=== PATIENT | female | born 1980 | race Caucasian/White ===

== ENCOUNTER 2016-07-22 15:03 | Emergency (ER) | payer OTHER ==
--- NOTE | 2016-07-22 15:04 | UCPHY ---
H & P Patient Type: New HPI/ROS: HPI CHIEF COMPLAINT: Lightheadedness, palpitations, feeling as I was going to pass out HISTORY OF PRESENT ILLNESS: This patient very pleasant 36-year-old female significant past medical history fibroidectomy on July 04 this was complicated by pneumonia and pulmonary embolisms, she is currently on Coumadin. 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 She felt like she is going to pass out she did not have chest pain she did not have shortness of breath. She tells me that she has been compliant with her Coumadin. She tells me she had multiple PEs. She had to lay down she did not feel nauseous. She did take her pulse her pulse oxygen was 100% but her pulse was 135. Past Medical History: Pulmonary embolus, pneumonia, on Coumadin Past Surgical History: Recent fibroidectomy Social History: Denies daily use of drugs alcohol tobacco products works as a dental anesthetic assistant Family History: Noncontributory ROS REVIEW OF SYSTEMS: A comprehensive 10 point review of systems is otherwise negative aside from elements mentioned in the history of present illness. Exam Constitutional appears well nontoxic, triage nursing summary reviewed, vital signs reviewed, awake/alert. Eyes normal conjunctivae and sclera, EOMI, PERRLA. HENT normal inspection, atraumatic, moist mucus membranes, no epistaxis, neck supple/ no meningismus, no raccoon eyes. Respiratory clear to auscultation bilaterally, normal breath sounds, no respiratory distress, no wheezing. Cardiovascular rate normal, regular rhythm, no murmur, no edema, distal pulses normal. Gastrointestinal soft, non-tender, no rebound, no guarding, normal bowel sounds, no distension, no pulsatile mass. Genitourinary no CVA tenderness. Musculoskeletal no midline vertebral tenderness, full range of motion, no calf swelling, no tenderness of extremities, no meningismus, good pulses, neurovascularly intact. Skin pink, warm, & dry, no rash, skin atraumatic. Neurologic awake, alert and oriented x 3, AAOx3, moves all 4 extremities equally, motor intact, sensory intact, CN II-XII intact, normal cerebellar, normal vision, normal speech. Psychiatric normal mood/affect. Heme/Lymph/Immune no lymphadenopathy. Differential Diagnosis: Includes but is not limited to in a particular order, cardiac arrhythmia, palpitations, dehydration, electrolyte abnormality, anemia, pulmonary embolism, acute MO Medical Decision Making: Plan for this patient this patient had an IV established obtain blood work, she will need D-dimer, EKG, chest x-ray should be hydrated IV fluids. Re-evaluation: EKG interpretation by me on record in [employer] system. Impression time of EKG 1635, this is sinus rhythm rate of 78 no acute ischemic changes specifically no ST elevation, ST depression, T-wave abnormalities, prolonged intervals. CT scan of the angiogram chest with IV contrast. The results of the study are shows a very small subsegmental Right lower lobe pulmonary embolism. The study was read by Dr. Wilcox I viewed the images myself on the PACS system. 1826: re-evaluation at this time this patient is resting comfortably no acute distress. Feels comfortable. No chest pain no shortness of breath. She has been maintained on a cardiac cath lab technologist the entire time she has been here without any significant tachycardia or arrhythmia. Patient's current vitals pulse ox 97 % on room air, heart rate 83, resting comfortably. I did go over her CT scan results with shows a very small age-indeterminate right lower lobe pulmonary embolism. This is unlikely to cause her symptoms of tachycardia to the 130s and feeling like she was going to pass out she had no chest pain or shortness of breath. No pleuritic pain she is on Coumadin I explained to her that she needs to up her Coumadin level for the next 2 days follow closely with primary care doctor get her INR recheck, also follow up for palpitations. She understands she is syncopal episode chest pain shortness of breath fast heart rate she needs to immediately return to the urgent care or emergency room. 1900: examination at this time this patient is comfortable going home. She feels fine. No chest pain or short of breath. No tachycardia she ambulated well without difficulty p.o. challenge well. Comfortable plan going home records given to her to follow up with primary care doctor INR slightly low she understands increase her Coumadin for double dose of the next 2 days. Then resume normal dose. Given INR recheck in a few days with the primary care doctor she understands. Source: Patient - Family History Significant Family History: No pertinent family hx Constitutional: Initial Vital Signs Temperature (C) 36.6 C 07/22/16 15:16 Heart Rate 78 07/22/16 15:16 Respiratory Rate 18 07/22/16 15:16 Blood Pressure 124/66 H 07/22/16 15:16 O2 Sat (%) 96 07/22/16 15:16 O2 Delivery Mode Room Air Allergies/Adverse Reactions: acetaminophen [From Percocet] Allergy (Verified 07/22/16 15:16) oxycodone HCl [From Percocet] Allergy (Verified 07/22/16 15:16) Home Medications: Medication Instructions Recorded Coumadin 07/22/16 Medical Decision Making - Data Points Laboratory Results: Laboratory Results 07/22/16 15:51 07/22/16 15:51 07/22/16 07/22/16 07/22/16 15:51 15:51 15:51 WBC 7.34 10^3/uL 10^3/uL (3.80-9.50) RBC 4.01 10^6/uL L 10^6/uL (4.18-5.33) Hgb 11.0 g/dL L g/dL (12.6-16.3) Hct 33.9 % L % (38.0-47.0) MCV 84.5 fL fL (81.5-99.8) MCH 27.4 pg L pg (27.9-34.1) MCHC 32.4 g/dL g/dL (32.4-36.7) RDW 13.2 % % (11.5-15.2) Plt Count 399 10^3/uL 10^3/uL (150-400) MPV 10.4 fL fL (8.7-11.7) Neut % (Auto) 69.9 % % (39.3-74.2) Lymph % (Auto) 20.7 % % (15.0-45.0) [place] % (Auto) 6.8 % % (4.5-13.0) Eos % (Auto) 1.8 % % (0.6-7.6) Baso % (Auto) 0.4 % % (0.3-1.7) Nucleat RBC Rel Count 0.0 % % (0.0-0.2) Absolute Neuts (auto) 5.13 10^3/uL 10^3/uL (1.70-6.50) Absolute Lymphs (auto) 1.52 10^3/uL 10^3/uL (1.00-3.00) Absolute Monos (auto) 0.50 10^3/uL 10^3/uL (0.30-0.80) Absolute Eos (auto) 0.13 10^3/uL 10^3/uL (0.03-0.40) Absolute Basos (auto) 0.03 10^3/uL 10^3/uL (0.02-0.10) Absolute Nucleated RBC 0.00 10^3/uL 10^3/uL (0-0.01) Immature Gran % 0.4 % % (0.0-1.1) Immature Gran # 0.03 10^3/uL 10^3/uL (0.00-0.10) PT 17.7 SEC H SEC (12.0-15.0) INR 1.49 H (0.83-1.16) APTT 34.5 SEC SEC (23.0-38.0) D-Dimer 0.62 ug/mLFEU H ug/mLFEU (0.00-0.50) Sodium 140 mEq/L mEq/L (134-144) Potassium 4.4 mEq/L mEq/L (3.5-5.2) Chloride 103 mEq/L mEq/L (97-110) Carbon Dioxide 26 mEq/l mEq/l (22-31) Anion Gap 11 mEq/L mEq/L (8-16) BUN 10 mg/dL mg/dL (7-23) Creatinine 0.5 mg/dL L mg/dL (0.6-1.0) Estimated GFR > 60 Glucose 110 mg/dL H mg/dL (70-100) Calcium 9.5 mg/dL mg/dL (8.5-10.4) Magnesium 1.9 mg/dL mg/dL (1.6-2.3) Total Bilirubin 0.4 mg/dL mg/dL (0.1-1.4) Conjugated Bilirubin 0.2 mg/dL mg/dL (0.0-0.5) Unconjugated Bilirubin 0.2 mg/dL mg/dL (0.0-1.1) AST 27 IU/L IU/L (14-46) ALT 54 IU/L H IU/L (9-52) Alkaline Phosphatase 79 IU/L IU/L (38-126) Troponin I < 0.012 ng/mL ng/mL (0-0.034) NT-Pro-B Natriuret Pep 130 pg/mL H pg/mL (0-125) Total Protein 7.7 g/dL g/dL (6.3-8.2) Albumin 4.0 g/dL g/dL (3.5-5.0) Lipase 85.0 IU/L IU/L (23-300) Medications Given: Discontinued Medications Sodium Chloride (Ns) 1,000 mls @ 0 mls/hr IV ONCE ONE PRN Reason: Wide Open Stop: 07/22/16 15:31 Last Admin: 07/22/16 15:51 Dose: 1,000 mls Departure - Departure Disposition: Home, Routine, Self-Care Clinical Impression: Palpitations, Tachycardia Pulmonary embolism Qualifiers: Pulmonary embolism type: other Chronicity: acute Acute cor pulmonale presence: without acute cor pulmonale Qualified Code(s): I26.99 - Other pulmonary embolism without acute cor pulmonale Condition: Good Instructions: Palpitations (ED), Near Syncope (ED) Additional Instructions: 1. Please follow up with her primary care doctor about her palpitations. 2. Your Coumadin level slightly low. You need to take an extra dose for the next 2 days and have your Coumadin level checked again. 3.Please immediately return to the urgent care or emergency room if you have worsening symptoms questions or concerns includes chest pain, shortness of breath, passing out. 4. you have a very small blood clot in her lung that is age indeterminate unlikely to cause her symptoms today. Referrals: TORI RUSH,. [Primary Care Provider] - As per Instructions - PQRS PQRS Measurement: n/a
[2016-07-22 15:20] VITALS: BP 124/66; PULSE 78; RESP 18; TEMP 98; O2SAT 96
[2016-07-22] MEDS: NS 1,000 ML IV ONE ×2 (15:50→15:51)
[2016-07-22 16:03] LABS: % IMMATURE GRANULYOCYTES 0.4 % (0.0-1.1); ABSOLUTE IMMATURE GRANULOCYTES 0.03 10^3/uL (0.00-0.10); ADD DIFF? NO; ADD MORPH? NO; ADD SCAN? NO; ATYPICAL LYMPHOCYTE FLAG 20 (0-99); FRAGMENT RBC FLAG 0 (0-99); HEMATOCRIT 33.9 % (38.0-47.0); LEFT SHIFT FLG 0 (0-99); LIPEMIA HEMOLYSIS FLAG 80 (0-99); MEAN CELL HEMOGLOBIN 27.4 pg (27.9-34.1); MEAN CELL HEMOGLOBIN CONCENTR. 32.4 g/dL (32.4-36.7); MEAN CELL VOLUME 84.5 fL (81.5-99.8); MEAN PLATELET VOLUME 10.4 fL (8.7-11.7); PLATELET CLUMPS FLAG 0 (0-99); PLATELET COUNT 399 10^3/uL (150-400); RED BLOOD CELL COUNT 4.01 10^6/uL (4.18-5.33); RED CELL DISTRIBUTION WIDTH 13.2 % (11.5-15.2)
[2016-07-22 16:14] LABS: INR 1.49 (0.83-1.16); PROTIME(PATIENT) 17.7 SEC (12.0-15.0)
[2016-07-22 16:15] LABS: APTT 34.5 SEC (23.0-38.0)
[2016-07-22 16:22] LABS: ALANINE AMINOTRANSFERASE 54 IU/L (9-52); ALKALINE PHOSPHATASE 79 IU/L (38-126); ANION GAP 11 mEq/L (8-16); ASPARTATE AMINOTRANSFERASE 27 IU/L (14-46); BILIRUBIN,TOTAL 0.4 mg/dL (0.1-1.4); BILIRUBIN-CONJUGATED 0.2 mg/dL (0.0-0.5); BILIRUBIN-UNCONJUGATED 0.2 mg/dL (0.0-1.1); CALCIUM 9.5 mg/dL (8.5-10.4); CARBON DIOXIDE 26 mEq/l (22-31); CHLORIDE 103 mEq/L (97-110); CREATININE 0.5 mg/dL (0.6-1.0); GLOMERULAR FILTRATION RATE > 60; GLUCOSE 110 mg/dL (70-100); MAGNESIUM 1.9 mg/dL (1.6-2.3); POTASSIUM 4.4 mEq/L (3.5-5.2); SODIUM 140 mEq/L (134-144); TOTAL PROTEIN 7.7 g/dL (6.3-8.2)
[2016-07-22 16:31] LABS: TROPONIN I < 0.012 ng/mL (0-0.034)
--- NOTE | 2016-07-22 16:37 | CPEKG ---
Heart Rate: 78 RR Interval: 769 P-R Interval: 120 QRSD Interval: 86 QT Interval: 368 QTC Interval: 420 P Schroeder: 36 QRS Schroeder: 50 T Wave Schroeder: 4 EKG Severity - NORMAL ECG - EKG Impression: SINUS RHYTHM Electronically Signed By: Kris Rolon 23-Jul-2016 12:05:48
[2016-07-22] MEDS ORDERED: IOPAMIDOL (ISOVUE-370) 150 ML BTL IV ONE (16:47)
== END 2016-07-22 19:25 | disposition home or self-care (01) ==
LOC: CED 15:03
DX: R00.2 Palpitations (principal); R00.0 Tachycardia, unspecified; I26.99 Other pulmonary embolism without acute cor pulmonale; Z79.01 Long term (current) use of anticoagulants; Z88.5 Allergy status to narcotic agent
CPT/HCPCS: 71010-PO; 71275-PO; 80053-PO; 82248-PO; 83690-PO; 83735-PO; 83880-PO; 84484-PO; 85025-PO; 85378-PO; 85610-PO; 85730-PO; 93010-PO; 96360-PO; 99205-PO; G0463-PO; Q9967

== ENCOUNTER 2016-09-20 13:23 | Emergency (ER) | payer OTHER ==
--- NOTE | 2016-09-20 14:13 | EDPHY ---
H & P Stated Complaint: sent by dr pia yanez for transfusion r/t anemia Time Seen by Provider: 09/20/16 13:42 HPI/ROS: CHIEF COMPLAINT: Anemia HISTORY OF PRESENT ILLNESS: The patient is a 36-year-old female who comes to the emergency department requesting a transfusion. She states that she saw her Dr Pia Yanez at the [facility] yesterday and complained of dizziness, fatigue, headaches with bending over and feeling faint. Dr. Yanez obtained lab work and discovered that her hematocrit was 24. She called her today and recommended she come to the emergency department for transfusion. The patient is on Xarelto for history of PE that was acquired after a hysterectomy in June of this year. She denies having any black or bloody stool. She denies vomiting. She denies being in any pain. She states that she does have a small internal hemorrhoid. No Vaginal bleeding. No fevers. She started taking iron tablets yesterday. REVIEW OF SYSTEMS: Constitutional: See HPI EENTM: denies: blurred vision, double vision, nose congestion Respiratory: denies: cough, shortness of breath Cardiac: denies: chest pain, irregular heart rate, lightheadedness, palpitations Gastrointestinal/Abdominal: denies: abdominal pain, diarrhea, nausea, vomiting, blood streaked stools Genitourinary: denies: dysuria, frequency, hematuria, pain Musculoskeletal: denies: joint pain, muscle pain Skin: denies: lesions, rash, jaundice, bruising Neurological: denies: headache, numbness, paresthesia, tingling, dizziness, weakness Hematologic/Lymphatic: denies: blood clots, easy bleeding, easy bruising Immunologic/allergic: denies: HIV/AIDS, transplant EXAM: GENERAL: Well-appearing, well-nourished and in no acute distress. HEAD: Atraumatic, normocephalic. EYES: Pupils equal round and reactive to light, extraocular movements intact, sclera anicteric, conjunctiva are normal. ENT: TMs normal, nares patent, oropharynx clear without exudates. Moist mucous membranes. NECK: Normal range of motion, supple without lymphadenopathy or JVD. LUNGS: Breath sounds clear to auscultation bilaterally and equal. No wheezes rales or rhonchi. HEART: Regular rate and rhythm without murmurs, rubs or gallops. ABDOMEN: Soft, nontender, normoactive bowel sounds. No guarding, no rebound. No masses appreciated. : Rectal exam performed, no visible hemorrhoid, grossly negative for blood. Minimal stool in the vault. Poor sample BACK: No CVA tenderness, no spinal tenderness, step-offs or deformities EXTREMITIES: Normal range of motion, no pitting or edema. No clubbing or cyanosis. NEUROLOGICAL: Cranial nerves II through XII grossly intact. Normal speech, normal gait. 5/5 strength, normal movement in all extremities, normal sensation PSYCH: Normal mood, normal affect. SKIN: Warm, dry, normal turgor, no visible rashes or lesions. Source: Patient Exam Limitations: No limitations - Personal History LMP (Females 10-55): 22-28 Days Ago Current Tetanus/Diphtheria Vaccine: Yes - Medical/Surgical History Hx Asthma: No Hx Chronic Respiratory Disease: No Hx Diabetes: No Hx Cardiac Disease: No Hx Renal Disease: No Hx Cirrhosis: No Hx Alcoholism: No Hx HIV/AIDS: No Hx Splenectomy or Spleen Trauma: No Other PMH: PE - post Uterus surg @ [facility] 07/04 - Family History Significant Family History: No pertinent family hx - Social History Smoking Status: Never smoked Alcohol Use: Sober Drug Use: None Constitutional: Initial Vital Signs Temperature (C) 36.7 C 09/20/16 13:30 Heart Rate 72 09/20/16 13:30 Respiratory Rate 17 09/20/16 13:30 Blood Pressure 128/58 H 09/20/16 13:30 O2 Sat (%) 98 09/20/16 13:30 O2 Delivery Mode Room Air Allergies/Adverse Reactions: acetaminophen [From Percocet] Allergy (Verified 07/22/16 15:16) oxycodone HCl [From Percocet] Allergy (Verified 07/22/16 15:16) Home Medications: Medication Instructions Recorded IRON 09/20/16 Xarelto 09/20/16 Medical Decision Making ED Course/Re-evaluation: 3:20 p.m. I spoke with Dr. Yanez. She has already arranged for the patient to follow up with the GI clinic on Thursday for scope. Dr. Boyd had requested that she come here to receive 2 units of blood. She has been switched to Lovenox so that she can stop taking it before the procedure. The patient's hematocrit is 29 here. No signs of acute significant bleeding. Patient is agreeable with this plan. 9pm the patient tolerated the transfusion. Denies lightheadedness or FELIX or fatigue. will d/c to f/u with GI on thursday as planned. discussed indications to return. Differential Diagnosis: Partial list of the Differential diagnosis considered include but were not limited to; anemia, GI bleed, peptic ulcer disease, hemorrhoid and although unlikely based on the history and physical exam, I also considered bleed, lymphoma, infection. I discussed these differential diagnoses and the plan with the patient as well as the usual and expected course. The patient understands that the diagnosis is provisional and that in medicine we are not always correct and that further workup is often warranted. Usual and customary warnings were given. All of the patient's questions were answered. The patient was instructed to return to the emergency department should the symptoms at all worsen or return, otherwise to followup with the physician as we discussed. - Data Points Laboratory Results: Laboratory Results 09/20/16 14:10 09/20/16 14:10 09/20/16 09/20/16 09/20/16 14:10 14:10 14:10 WBC RBC Hgb Hct MCV MCH MCHC RDW Plt Count MPV Neut % (Auto) Lymph % (Auto) [place] % (Auto) Eos % (Auto) Baso % (Auto) Nucleat RBC Rel Count Absolute Neuts (auto) Absolute Lymphs (auto) Absolute Monos (auto) Absolute Eos (auto) Absolute Basos (auto) Absolute Nucleated RBC Immature Gran % Immature Gran # Platelet Estimate Large Platelets Polychromasia Hypochromasia Microcytic Cells Tear Drop Cells Elliptocytes PT INR APTT Sodium 142 mEq/L mEq/L (134-144) Potassium 4.2 mEq/L mEq/L (3.5-5.2) Chloride 106 mEq/L mEq/L (97-110) Carbon Dioxide 24 mEq/l mEq/l (22-31) Anion Gap 12 mEq/L mEq/L (8-16) BUN 9 mg/dL mg/dL (7-23) Creatinine 0.6 mg/dL mg/dL (0.6-1.0) Estimated GFR > 60 Glucose 106 mg/dL H mg/dL (70-100) Calcium 9.2 mg/dL mg/dL (8.5-10.4) Stool Occult Bld Scrn NEGATIVE (NEGATIVE) Patient ABO/Rh O POSITIVE Antibody Screen NEGATIVE Crossmatch IS Only See Detail 09/20/16 09/20/16 14:10 14:10 WBC 6.84 10^3/uL 10^3/uL (3.80-9.50) RBC 3.87 10^6/uL L 10^6/uL (4.18-5.33) Hgb 8.2 g/dL L g/dL (12.6-16.3) Hct 28.7 % L % (38.0-47.0) MCV 74.2 fL L fL (81.5-99.8) MCH 21.2 pg L pg (27.9-34.1) MCHC 28.6 g/dL L g/dL (32.4-36.7) RDW 16.2 % H % (11.5-15.2) Plt Count 249 10^3/uL 10^3/uL (150-400) MPV 12.1 fL H fL (8.7-11.7) Neut % (Auto) 53.7 % % (39.3-74.2) Lymph % (Auto) 35.4 % % (15.0-45.0) [place] % (Auto) 8.5 % % (4.5-13.0) Eos % (Auto) 1.2 % % (0.6-7.6) Baso % (Auto) 0.3 % % (0.3-1.7) Nucleat RBC Rel Count 0.4 % H % (0.0-0.2) Absolute Neuts (auto) 3.68 10^3/uL 10^3/uL (1.70-6.50) Absolute Lymphs (auto) 2.42 10^3/uL 10^3/uL (1.00-3.00) Absolute Monos (auto) 0.58 10^3/uL 10^3/uL (0.30-0.80) Absolute Eos (auto) 0.08 10^3/uL 10^3/uL (0.03-0.40) Absolute Basos (auto) 0.02 10^3/uL 10^3/uL (0.02-0.10) Absolute Nucleated RBC 0.03 10^3/uL H 10^3/uL (0-0.01) Immature Gran % 0.9 % % (0.0-1.1) Immature Gran # 0.06 10^3/uL 10^3/uL (0.00-0.10) Platelet Estimate ADEQUATE (ADEQ) Large Platelets PRESENT H Polychromasia 1+ H Hypochromasia 2+ H Microcytic Cells 2+ H Tear Drop Cells 1+ H Elliptocytes 1+ H PT 16.4 SEC H SEC (12.0-15.0) INR 1.32 H (0.83-1.16) APTT 33.4 SEC SEC (23.0-38.0) Sodium Potassium Chloride Carbon Dioxide Anion Gap BUN Creatinine Estimated GFR Glucose Calcium Stool Occult Bld Scrn Patient ABO/Rh Antibody Screen Crossmatch IS Only Medications Given: Discontinued Medications Ondansetron HCl (Zofran) 4 mg IVP EDNOW ONE Stop: 09/20/16 18:12 Last Admin: 09/20/16 18:26 Dose: 4 mg Departure - Departure Disposition: Home, Routine, Self-Care Clinical Impression: Anemia Qualifiers: Anemia type: unspecified type Qualified Code(s): D64.9 - Anemia, unspecified Condition: Fair Instructions: Anemia (ED) Additional Instructions: follow up[ with Dr Grimaldo on thursday as planned Referrals: Pia Yanez MD [Primary Care Provider] - As per Instructions Christ Boyd MD [Medical Doctor] - As per Instructions
[2016-09-20 14:39] LABS: % IMMATURE GRANULYOCYTES 0.9 % (0.0-1.1); ABSOLUTE IMMATURE GRANULOCYTES 0.06 10^3/uL (0.00-0.10); ABSOLUTE NRBC COUNT 0.03 10^3/uL (0-0.01); ADD DIFF? NO; ADD MORPH? YES; ADD SCAN? NO; ATYPICAL LYMPHOCYTE FLAG 30 (0-99); FRAGMENT RBC FLAG 40 (0-99); HEMATOCRIT 28.7 % (38.0-47.0); HEMOGLOBIN 8.2 g/dL (12.6-16.3); LEFT SHIFT FLG 0 (0-99); LIPEMIA HEMOLYSIS FLAG 70 (0-99); MEAN CELL HEMOGLOBIN 21.2 pg (27.9-34.1); MEAN CELL VOLUME 74.2 fL (81.5-99.8); MEAN PLATELET VOLUME 12.1 fL (8.7-11.7); NRBC-AUTO% 0.4 % (0.0-0.2); PLATELET CLUMPS FLAG 0 (0-99); PLATELET COUNT 249 10^3/uL (150-400); RED BLOOD CELL COUNT 3.87 10^6/uL (4.18-5.33); RED CELL DISTRIBUTION WIDTH 16.2 % (11.5-15.2)
[2016-09-20 14:46] LABS: APTT 33.4 SEC (23.0-38.0); INR 1.32 (0.83-1.16); PROTIME(PATIENT) 16.4 SEC (12.0-15.0)
[2016-09-20 14:47] LABS: MEAN CELL HEMOGLOBIN CONCENTR. 28.6 g/dL (32.4-36.7)
[2016-09-20 14:52] LABS: ANION GAP 12 mEq/L (8-16); CALCIUM 9.2 mg/dL (8.5-10.4); CARBON DIOXIDE 24 mEq/l (22-31); CHLORIDE 106 mEq/L (97-110); CREATININE 0.6 mg/dL (0.6-1.0); GLOMERULAR FILTRATION RATE > 60; GLUCOSE 106 mg/dL (70-100); POTASSIUM 4.2 mEq/L (3.5-5.2); SODIUM 142 mEq/L (134-144)
[2016-09-20 15:52] LABS: ELLIPTOCYTES 1+; HYPOCHROMIA 2+; LARGE PLATELETS PRESENT; MICROCYTES 2+; PLATELET ESTIMATE ADEQUATE (ADEQ); POLYCHROMASIA 1+
[2016-09-20] MEDS ORDERED: ONDANSETRON 4 MG/2 ML VIAL ONE (18:09)
[2016-09-20] MEDS ORDERED: ONDANSETRON 4 MG/2 ML VIAL IVP ONE (18:11)
[2016-09-20 18:43] VITALS: RESP 18
[2016-09-20 20:26] VITALS: BP 113/72; PULSE 71; TEMP 98.1; O2SAT 96
== END 2016-09-20 21:16 | disposition home or self-care (01) ==
PROC: 30233N1 Transfusion of Nonautologous Red Blood Cells into Peripheral Vein, Percutaneous Approach (ICD-10-PCS; principal; 2016-09-20)
DX: D64.9 Anemia, unspecified (principal); Z79.01 Long term (current) use of anticoagulants
CPT/HCPCS: 36430; 96374; 99285; P9016; P9021; J2405

== ENCOUNTER → 2017-12-02 | Outpatient (CLI) | payer OTHER | LOC: CIMAGING 14:50 | PROVIDERS: ATTEND Family Medicine | DX: R10.2 Pelvic and perineal pain (principal); Z97.5 Presence of (intrauterine) contraceptive device | CPT/HCPCS: 76856-PO ==